=== PATIENT | male | born 1935 | race Caucasian/White ===

== ENCOUNTER 2022-04-16 12:54 | Outpatient (AMB) | payer MEDICARE, SELFPAY ==
--- NOTE | 2022-04-12 15:46 | A.OFFVIS_ITS ---
Intake Intake Visit Reasons: Flank Pain Intake Note: Patient is present for Flank Pain Current Urology Medication:none Blood Thinner:none Patient states that he has been having bad pain on his left flank area. Patient did notice that pain will come and go and does cause discomfort while he is trying to sleep. Patient does exercise but is concerned if anything may be wrong with his kidney. Oil Sprayer Required: No Accompanied by: Spouse Allergies ciprofloxacin [CIPROFLOXACIN] Allergy (Unknown, Verified 04/16/22 13:06) CALF PAIN, bilateral calf pain doxycycline [DOXYCYCLINE] Allergy (Unknown, Verified 04/16/22 13:06) [employer] EFFECTS, H/A, fsr effects; headache HPI HPI Comments History of Present Illness Details Investigations of kidney stable Prostate cancer well controlled [facility] Medical History (Updated 04/12/22 @ 15:51 by RENEE Bui) Anemia GERD (gastroesophageal reflux disease) Male stress incontinence Prostate nodule Prostatitis Prostate abscess Elevated PSA Nocturia BPH (benign prostatic hyperplasia) Incomplete emptying of bladder Gross hematuria Surgical History (Updated 04/12/22 @ 15:52 by RENEE Bui) History of prostate surgery History of bladder surgery History of arthroscopic knee surgery Review of Systems Const Denies chills and Denies fever(s) Card Reports no additional complaints and Denies syncope Resp Denies cough GI Denies abdominal pain and Denies heartburn Reports as per HPI and Denies change in libido Neuro Denies syncope Psych Denies change in libido Endo Denies change in libido Physical Exam Const General: cooperative, healthy appearing, comfortable and no acute distress Orientation/consciousness: patient oriented x3 HEENT Face and sinus: Yes normal facial exam Mouth: moist mucous membranes Neck Neck: Yes normal visual inspection, Yes full ROM and Yes trachea midline Chest Chest palpation & inspection: normal inspection of the chest Resp Effort & Inspection: normal respiratory effort, able to speak in complete sentences and no respiratory distress GI Inspection: Yes normal to inspection Back/Spine/Pelvis Cervical Spine: normal cervical lordosis Thoracic/Lumbar Spine: thoracic and lumbar spine normal to inspection Skin General skin exam: no rashes or lesions noted Neuro General: patient oriented x3, gait normal, tone normal and moves all extremities Extrem General: Yes normal to inspection and Yes capillary refill normal Results AMB Urinalysis, Automated UA Leukoctes 0 Mikael/uL Last Edit by RENEE Bui on 04/16/22 13:10 UA Nitrite Negative Last Edit by Smiley Ballesteros, A on 04/16/22 13:10 UA Urobilinogen 0.2 mg/dL Last Edit by Smiley Ballesteros, RMA on 04/16/22 13:1 0 UA Protein 0 mg/dL Last Edit by Smiley Ballesteros, RMA on 04/16/22 13:10 UA pH 6.0 Last Edit by Smiley Ballesteros, RMA on 04/16/22 13:10 UA Blood 0 Matt/uL Last Edit by Smiley Ballesteros, RMA on 04/16/22 13:10 UA Specific [place] 1.015 Last Edit by Smiley Ballesteros, A on 04/16/22 13: 10 UA Ketone Negative Last Edit by Smiley Ballesteros, A on 04/16/22 13:10 UA Bilirubin 0 mg/dL Last Edit by Smiley Ballesteros, A on 04/16/22 13:10 UA Glucose 0 mg/dL Last Edit by Smiley Ballesteros, A on 04/16/22 13:10 Results Reviewed Results Reviewed: Laboratory Last Values Urine pH (Auto) 6.0 04/16/22 13:09 Specific [place] (Auto) 1.015 04/16/22 13:09 Urine Protein (Auto) 0 mg/dL 04/16/22 13:09 Glucose (UA)(Auto) 0 mg/dL 04/16/22 13:09 Urine Ketones (Auto) Negative 04/16/22 13:09 Urine Blood (Auto) 0 Matt/uL 04/16/22 13:09 Urine Nitrite (Auto) Negative 04/16/22 13:09 Urine Bilirubin (Auto) 0 mg/dL 04/16/22 13:09 Urine Urobilinogen (Auto) 0.2 mg/dL 04/16/22 13:09 Leukocyte Esterase (Auto) 0 Mikael/uL 04/16/22 13:09 Assessment & Plan Assessment & Plan (1) Prostate cancer: Code(s): C61 - Malignant neoplasm of prostate (2) Nephrolithiasis: Code(s): N20.0 - Calculus of kidney Plan f/u prn Orders: Orders AMB Urinalysis Automated 04/16/22 Z13.9 - Encounter for screening, unspecified Patient Instructions: Imaging studies, laboratory and physical exam results were discussed and reviewed in detail. No major barriers to patient understanding were identified. An opportunity to ask questions regarding the treatment plan was provided. All questions were answered. The patient expressed understanding and agreement with the above treatment plan. The patient is aware they should contact our office by phone for worsening of their current condition or the appearance of new urologic symptoms. Compliance is encouraged with any medications and followup testing that is ordered. It is a privilege to participate in the urologic care of your patient. If you have any questions or concerns regarding treatment for the above conditions, or other urologic issues, please do not hesitate to contact me. The office telephone contact is [phone]. This note is constructed using voice recognition software. While every effort has been made to ensure accuracy master cook errors may have been included. Yours sincerely, Dr Aime Khalil MD, [facility] - Urology Providers of Expert, Compassionate Care for the Genitourinary System Coding Level of Care Code Est Pt Level 3 (28126) Diagnoses Prostate cancer C61 Nephrolithiasis N20.0
== END 2022-04-16 14:06 | disposition home or self-care (01) ==
LOC: HO.HUSH 12:54
PROVIDERS: PCP Internal Medicine; Visit Provider Urology
DX: C61 Malignant neoplasm of prostate (principal); N20.0 Calculus of kidney
CPT/HCPCS: 99499